=== PATIENT | female | born 1970 | race Caucasian/White ===

== ENCOUNTER 2017-01-04 12:00 | Emergency (ER) | payer MEDICAID ==
[~2017-01-04] VITALS: Ht 162.6 cm; Wt 108.9 kg
[2017-01-04 13:22] VITALS: BP 147/91
== END 2017-01-04 14:38 | disposition home or self-care (01) ==
LOC: ER 12:00
DX: L03.116 Cellulitis of left lower limb (principal); E66.9 Obesity, unspecified; Z68.41 Body mass index [BMI] 40.0-44.9, adult; Z88.7 Allergy status to serum and vaccine; Z91.02 Food additives allergy status; Z91.018 Allergy to other foods

== ENCOUNTER 2019-02-06 23:38 | Emergency (ER) | payer MEDICAID ==
[~2019-02-06] VITALS: Ht 162.6 cm; Wt 103.0 kg
[2019-02-06 23:45] VITALS: BP 141/93
== END 2019-02-07 00:11 | disposition left against medical advice (07) ==
LOC: ER 23:38
DX: S60.457A Superficial foreign body of left little finger, initial encounter (principal); Z53.21 Procedure and treatment not carried out due to patient leaving prior to being seen by health care provider; W22.8XXA Striking against or struck by other objects, initial encounter; Y93.89 Activity, other specified; Y92.89 Other specified places as the place of occurrence of the external cause; Y99.8 Other external cause status

== ENCOUNTER 2024-01-12 19:30 | Emergency (ER) | payer MEDICAID ==
[~2024-01-12] VITALS: Ht 157.5 cm; Wt 85.7 kg
[2024-01-12] MEDS ORDERED: ACET500T58 PO (19:55)
[2024-01-12] MEDS ORDERED: IBUP-1455 PO (19:55)
[2024-01-12] MEDS ORDERED: AUG875T PO (19:55)
[2024-01-12] MEDS ORDERED: IBUPROFEN 800 MG TAB PO ONE (20:00)
[2024-01-12 20:01] VITALS: BP 117/81
[2024-01-12] MEDS: DexAMETHasone SOD PHOS 10MG/1ML VIAL INJ IM ONE (20:11)
[2024-01-12] MEDS: AMOXICILLIN/CLAVUL 875 MG TAB PO ONE (20:11)
[2024-01-12] MEDS: NEOMYCIN-BACITRACIN-POLYM UNITDOSE PKG TOP OINT TOP ONE (20:17)
[2024-01-12 20:18] VITALS: PULSE 102; RESP 18; O2SAT 94
== END 2024-01-12 20:19 | disposition home or self-care (01) ==
LOC: ER 19:30
DX: S51.831A Puncture wound without foreign body of right forearm, initial encounter (principal); S40.811A Abrasion of right upper arm, initial encounter; E66.01 Morbid (severe) obesity due to excess calories; Z68.34 Body mass index [BMI] 34.0-34.9, adult; Z88.7 Allergy status to serum and vaccine; W55.01XA Bitten by cat, initial encounter; Y93.89 Activity, other specified; Y92.89 Other specified places as the place of occurrence of the external cause; Y99.8 Other external cause status
CPT/HCPCS: 96372; 99283; J1100

== ENCOUNTER 2024-01-15 07:01 | Emergency (ER) | payer MEDICAID ==
[~2024-01-15] VITALS: Ht 157.5 cm; Wt 87.6 kg
[~2024-01-15 07:01] MED LIST: ACET500T58 PO; AUG875T PO; IBUP-1455 PO
[2024-01-15 07:06] VITALS: TEMP 98.5
[2024-01-15 07:15] VITALS: BP 112/79; PULSE 16; RESP 16; O2SAT 97
[2024-01-15] MEDS: KETOROLAC TROMETH 30 MG/ML 1ML VIAL IM ONE (08:03)
== END 2024-01-15 08:55 | disposition home or self-care (01) ==
LOC: ER 07:01
DX: S51.831A Puncture wound without foreign body of right forearm, initial encounter (principal); Z88.7 Allergy status to serum and vaccine; Z79.899 Other long term (current) drug therapy; W55.03XA Scratched by cat, initial encounter; Y93.89 Activity, other specified; Y92.89 Other specified places as the place of occurrence of the external cause; Y99.8 Other external cause status
CPT/HCPCS: 73090; 96372; 99283; J1885